=== PATIENT | female | born 1940 | race African-American/Black ===

== ENCOUNTER 2019-04-17 10:24 | Inpatient (IN) | payer MEDICARE, MEDICAID ==
[~2019-04-17] VITALS: Ht 162.6 cm; Wt 104.5 kg
[2019-04-17] MEDS ORDERED: TRAMADOL 50MG TABLET PO ONE (11:00)
[2019-04-17 12:00] LABS: BASOPHILS % 0.5 % (0.0-2.0); EOSINOPHILS % 0.2 % (0.0-5.0); HEMATOCRIT. 32.5 % (36.0-48.0); HEMOGLOBIN. 10.6 g/dL (12.0-16.0); LYMPHOCYTES % 19.1 % (20.0-50.0); MEAN CORPUSCULAR HEMOGLOBIN 32.7 pg (28.0-32.0); MEAN PLATELET VOLUME 7.8 fl (7.4-10.4); MONOCYTES % 8.1 % (2.0-8.0); NEUTROPHILS % 72.1 % (40.0-76.0); PLATELET 184 x1000/uL (130-400); RED BLOOD CELL COUNT 3.25 mill/uL (4.2-5.4); RED CELL DISTRIBUTION WIDTH 14.7 % (11.6-14.6)
[2019-04-17 12:05] LABS: CHLORIDE 110 mEq/L (98-107)
[2019-04-17] MEDS ORDERED: ENOXAPARIN 80MG/0.8ML SYR SUBCUT ONE (13:00)
[2019-04-17] MEDS ORDERED: FUROSEMIDE 40MG/4ML VIAL IVP ONE (13:00)
[2019-04-17] MEDS ORDERED: IPRATROPIUM/ALBUTEROL 0.5-3(2.5)MG/3ML NEB INH PRN (13:30)
[2019-04-17] MEDS ORDERED: ACETAMINOPHEN 325MG TABLET PO PRN (13:30)
[2019-04-17] MEDS ORDERED: MAGNESIUM/ALUMINUM HYDROXIDE/SIMETHICONE 30ML UDC PO PRN (13:30)
[2019-04-17] MEDS ORDERED: CLONIDINE 0.1MG TABLET PO PRN (13:30)
[2019-04-17] MEDS ORDERED: ENOXAPARIN 40MG/0.4ML SYR SUBCUT SCH (13:30)
[2019-04-17] MEDS ORDERED: ONDANSETRON HCL 4MG/2ML INJ IV PRN (13:30)
[2019-04-17] MEDS ORDERED: NA PHOS,M-B/NA PHOS,DI-BA ENEMA 118ML PR PRN (13:30)
[2019-04-17] MEDS ORDERED: DIPHENHYDRAMINE 50MG/ML VIAL IV PRN (13:30)
[2019-04-17] MEDS ORDERED: GUAIFENESIN 200MG/10ML SUGAR FREE UDC PO PRN (13:30)
[2019-04-17] MEDS ORDERED: DOCUSATE SODIUM 100MG CAPSULE PO PRN (13:30)
[2019-04-17 14:25] LABS: CHLORIDE 106 mEq/L (98-107)
[2019-04-17 22:26] VITALS: BP 134/74
[2019-04-17] MEDS ORDERED: POTASSIUM CHLORIDE 20MEQ TABLET SR PO NR (23:00)
[2019-04-17 23:10] VITALS: BP 134/74
[2019-04-17] MEDS: TRAMADOL 50MG TABLET PO PRN (23:35)
[2019-04-18] VITALS: BP 124/70
[2019-04-18] MEDS: ENOXAPARIN 30MG/0.3ML SYR SUBCUT SCH ×2 (01:38→14:56)
[2019-04-18 04:38] VITALS: BP 112/72
[2019-04-18] MEDS: TRAMADOL 50MG TABLET PO PRN (06:49)
[2019-04-18 07:10] LABS: BASOPHILS % 0.4 % (0.0-2.0); HEMATOCRIT. 29.5 % (36.0-48.0); HEMOGLOBIN. 9.8 g/dL (12.0-16.0); LYMPHOCYTES % 32.2 % (20.0-50.0); MEAN CORPUSCULAR HEMOGLOBIN 33.3 pg (28.0-32.0); MEAN PLATELET VOLUME 7.9 fl (7.4-10.4); MONOCYTES % 10.3 % (2.0-8.0); NEUTROPHILS % 56.1 % (40.0-76.0); PLATELET 187 x1000/uL (130-400); RED BLOOD CELL COUNT 2.95 mill/uL (4.2-5.4); RED CELL DISTRIBUTION WIDTH 14.8 % (11.6-14.6)
[2019-04-18 07:41] LABS: CHLORIDE 110 mEq/L (98-107)
[2019-04-18 08:03] LABS: LDL CHOLESTEROL 28 mg/dL (5-100)
[2019-04-18 08:04] LABS: HDL CHOLESTEROL 49 mg/dL (40-59)
[2019-04-18 08:06] LABS: T4 FREE 1.23 ng/dL (0.76-1.46)
[2019-04-18 08:49] VITALS: BP 111/69
[2019-04-18] MEDS: FUROSEMIDE 40MG/4ML VIAL IV SCH (08:52)
[2019-04-18] MEDS: ASPIRIN 81MG EC TABLET PO SCH (08:52)
[2019-04-18 11:41] VITALS: BP 104/61
[2019-04-18 15:44] VITALS: BP 109/69
[2019-04-18] MEDS: NYSTATIN POWDER 15GM TOP SCH ×2 (18:05→18:15)
[2019-04-18 20:00] VITALS: BP 116/58
[2019-04-18 20:22] LABS: CHLORIDE 107 mEq/L (98-107)
[2019-04-18] MEDS: METOPROLOL TARTRATE 5MG/5ML VIAL IV PRN (21:01)
[2019-04-19] MEDS: ENOXAPARIN 30MG/0.3ML SYR SUBCUT SCH ×2 (02:04→14:19)
[2019-04-19] MEDS: METOPROLOL TARTRATE 5MG/5ML VIAL IV PRN ×2 (02:05→08:25)
[2019-04-19] MEDS: TRAMADOL 50MG TABLET PO PRN ×2 (02:18→10:14)
[2019-04-19 02:20] VITALS: BP 146/98
[2019-04-19 04:00] VITALS: BP 122/77
[2019-04-19 07:46] VITALS: BP 130/65
[2019-04-19] MEDS: NYSTATIN POWDER 15GM TOP SCH ×3 (08:17→17:51)
[2019-04-19] MEDS: ASPIRIN 81MG EC TABLET PO SCH (08:17)
[2019-04-19] MEDS: FUROSEMIDE 40MG/4ML VIAL IV SCH (08:25)
[2019-04-19 12:07] VITALS: BP 125/59
[2019-04-19 15:52] VITALS: BP 139/85
[2019-04-19] MEDS: LORAZEPAM 2MG/ML CPJ IV PRN (17:11)
[2019-04-19 20:00] VITALS: BP 134/117
[2019-04-20] VITALS: BP 138/76
[2019-04-20] MEDS: ENOXAPARIN 30MG/0.3ML SYR SUBCUT SCH (01:52)
[2019-04-20 04:00] VITALS: BP 126/104
[2019-04-20 07:07] LABS: BASOPHILS % 0.4 % (0.0-2.0); EOSINOPHILS % 0.7 % (0.0-5.0); HEMOGLOBIN. 10.1 g/dL (12.0-16.0); LYMPHOCYTES % 35.4 % (20.0-50.0); MEAN CORPUSCULAR HEMOGLOBIN 33.2 pg (28.0-32.0); MEAN PLATELET VOLUME 7.9 fl (7.4-10.4); MONOCYTES % 9.1 % (2.0-8.0); NEUTROPHILS % 54.4 % (40.0-76.0); PLATELET 198 x1000/uL (130-400); RED BLOOD CELL COUNT 3.03 mill/uL (4.2-5.4); RED CELL DISTRIBUTION WIDTH 14.8 % (11.6-14.6)
[2019-04-20 07:22] LABS: CHLORIDE 105 mEq/L (98-107)
[2019-04-20] MEDS ORDERED: DIGOXIN 500MCG/2ML AMP IV NR (08:15)
[2019-04-20 08:17] VITALS: BP 138/85
[2019-04-20] MEDS: ASPIRIN 81MG EC TABLET PO SCH (09:10)
[2019-04-20] MEDS: ENOXAPARIN 100MG/ML SYR SUBCUT SCH ×2 (09:11→20:33)
[2019-04-20] MEDS: NYSTATIN POWDER 15GM TOP SCH ×3 (09:12→16:53)
[2019-04-20] MEDS: TRAMADOL 50MG TABLET PO PRN ×2 (09:14→16:42)
[2019-04-20 11:47] LABS: T4 FREE 1.24 ng/dL (0.76-1.46)
[2019-04-20 12:00] VITALS: BP 109/76
[2019-04-20 15:47] LABS: D-DIMER 0.76 mg/L FEU (<0.50); INR 1.1; PROTHROMBIN TIME 11.6 sec (9.6-11.0)
[2019-04-20 15:59] LABS: CLARITY URINE TURBID (CLEAR); COLOR URINE YELLOW (YELLOW); KETONES URINE NEGATIVE (NEGATIVE); LEUKOCYTE ESTERASE URINE 3+ (NEGATIVE); NITRITE URINE POSITIVE (NEGATIVE); OCCULT BLOOD URINE 3+ (NEGATIVE); PROTEIN URINE 1+ (NEGATIVE); SPECIFIC GRAVITY URINE 1.016 (1.005-1.030)
[2019-04-20 16:00] VITALS: BP 158/84
[2019-04-20 16:18] LABS: CREATINE KINASE 102 IU/L (26-192)
[2019-04-20 16:20] LABS: CREATINE KINASE MB FRACTION 2.2 ng/mL (0.5-3.6)
[2019-04-20 19:49] VITALS: BP_SYST 132; BP_SYST 178; BP_DIAS 60; BP_DIAS 68
[2019-04-20] MEDS: LORAZEPAM 2MG/ML CPJ IV PRN (21:11)
[2019-04-21] VITALS (7 sets, daily range): BP systolic 119–145; BP diastolic 58–80
[2019-04-21 00:07] LABS: T4 FREE 1.24 ng/dL (0.76-1.46)
[2019-04-21 00:08] LABS: CREATINE KINASE MB FRACTION 1.7 ng/mL (0.5-3.6)
[2019-04-21] MEDS: METOPROLOL TARTRATE 5MG/5ML VIAL IV PRN (00:24)
[2019-04-21 06:54] LABS: BASOPHILS % 0.5 % (0.0-2.0); EOSINOPHILS % 0.6 % (0.0-5.0); HEMOGLOBIN. 10.1 g/dL (12.0-16.0); LYMPHOCYTES % 33.8 % (20.0-50.0); MEAN CORPUSCULAR HEMOGLOBIN 33.4 pg (28.0-32.0); MEAN CORPUSCULAR VOLUME 98.7 fL (81.0-99.0); MONOCYTES % 11.1 % (2.0-8.0); PLATELET 209 x1000/uL (130-400); RED BLOOD CELL COUNT 3.04 mill/uL (4.2-5.4); RED CELL DISTRIBUTION WIDTH 14.7 % (11.6-14.6)
[2019-04-21 07:08] LABS: CHLORIDE 104 mEq/L (98-107)
[2019-04-21 07:19] LABS: CREATINE KINASE 86 IU/L (26-192)
[2019-04-21 07:24] LABS: CREATINE KINASE MB FRACTION 1.9 ng/mL (0.5-3.6)
[2019-04-21] MEDS: ASPIRIN 81MG EC TABLET PO SCH (09:30)
[2019-04-21] MEDS: NYSTATIN POWDER 15GM TOP SCH ×3 (09:30→16:34)
[2019-04-21] MEDS: ENOXAPARIN 100MG/ML SYR SUBCUT SCH ×2 (09:30→20:12)
[2019-04-21] MEDS: TRAMADOL 50MG TABLET PO PRN ×2 (09:31→20:16)
[2019-04-22] VITALS: BP 140/72
[2019-04-22 04:00] VITALS: BP 170/96
[2019-04-22] MEDS: TRAMADOL 50MG TABLET PO PRN (06:18)
[2019-04-22 08:00] VITALS: BP 125/80
[2019-04-22] MEDS: ASPIRIN 81MG EC TABLET PO SCH (09:31)
[2019-04-22] MEDS: ENOXAPARIN 100MG/ML SYR SUBCUT SCH (09:32)
[2019-04-22] MEDS: SULFAMETHOXAZOLE/TRIMETHOPRIM 800/160MG TABLET PO SCH ×2 (09:37→20:55)
[2019-04-22] MEDS: NYSTATIN POWDER 15GM TOP SCH ×3 (09:38→18:23)
[2019-04-22 12:00] VITALS: BP 125/84
[2019-04-22 16:00] VITALS: BP 125/66
[2019-04-22] MEDS: APIXABAN 5 MG TABLET PO SCH (18:23)
[2019-04-22 20:00] VITALS: BP 124/82
[2019-04-23] VITALS: BP 150/67
[2019-04-23 04:00] VITALS: BP 142/60
[2019-04-23 08:58] VITALS: BP 117/73
[2019-04-23] MEDS: APIXABAN 5 MG TABLET PO SCH (09:17)
[2019-04-23] MEDS: ASPIRIN 81MG EC TABLET PO SCH (09:18)
[2019-04-23] MEDS ORDERED: LEVOFLOXACIN 500MG TABLET PO SCH (11:00)
[2019-04-23 12:15] VITALS: BP 134/92
[2019-04-23 12:18] VITALS: BP 134/66
[2019-04-23] MEDS ORDERED: APIX5TAB MT (12:45)
[2019-04-23] MEDS ORDERED: LEVO500T2 MT (12:47)
[2019-04-23] MEDS ORDERED: TRAM50TA94 MT (12:48)
[2019-04-23 12:49] VITALS: BP 117/73
== END 2019-04-23 16:30 | disposition home health service (06) | DRG 133 ==
LOC: ER 10:24 → 6WST 13:22 → EDBEDREQ 13:26 → ENRESERV 19:34
PROVIDERS: ADMIT Internal Medicine; ATTEND Internal Medicine
DX: J96.00 Acute respiratory failure, unspecified whether with hypoxia or hypercapnia (principal); I50.41 Acute combined systolic (congestive) and diastolic (congestive) heart failure; I42.0 Dilated cardiomyopathy; E87.70 Fluid overload, unspecified; R65.10 Systemic inflammatory response syndrome (SIRS) of non-infectious origin without acute organ dysfunction; I48.91 Unspecified atrial fibrillation; I11.0 Hypertensive heart disease with heart failure; N39.0 Urinary tract infection, site not specified; B96.20 Unspecified Escherichia coli [E. coli] as the cause of diseases classified elsewhere; E11.9 Type 2 diabetes mellitus without complications; B96.89 Other specified bacterial agents as the cause of diseases classified elsewhere; D64.9 Anemia, unspecified; I25.10 Atherosclerotic heart disease of native coronary artery without angina pectoris; M19.90 Unspecified osteoarthritis, unspecified site; I87.8 Other specified disorders of veins; D72.821 Monocytosis (symptomatic); E78.5 Hyperlipidemia, unspecified; I48.92 Unspecified atrial flutter; Z16.12 Extended spectrum beta lactamase (ESBL) resistance; Z96.659 Presence of unspecified artificial knee joint; Z99.3 Dependence on wheelchair; Z88.0 Allergy status to penicillin; Z87.891 Personal history of nicotine dependence; Z82.49 Family history of ischemic heart disease and other diseases of the circulatory system; Z88.5 Allergy status to narcotic agent; Z91.041 Radiographic dye allergy status
CPT/HCPCS: 36415; 71045; 78582; 80048; 80061; 82550; 82553; 83036; 83880; 84134; 84439; 84443; 84484; 85379; 87077; 87186; 93005; 93306; 93970; 96372; 96374; 97110; 97162; 97166; 97530; 99285; A6261; A9558; C1893; J1160; J1200; J1650; J1940; J2060; J3490; A4315

== ENCOUNTER 2019-05-07 13:35 | Inpatient (IN) | payer MEDICARE, MEDICAID ==
[~2019-05-07] VITALS: Ht 170.2 cm; Wt 113.4 kg
[~2019-05-07 13:35] MED LIST: APIX5TAB MT; LEVO500T2 MT; TRAM50TA94 MT
[2019-05-07] MEDS ORDERED: TRAM100C3 PO (13:44)
[2019-05-07] MEDS ORDERED: APIX5TAB PO (13:44)
[2019-05-07] MEDS ORDERED: LEVO250T58 PO (13:44)
[2019-05-07] MEDS ORDERED: ACETAMINOPHEN 325MG TABLET PO STA (14:46)
[2019-05-07 15:27] LABS: BASOPHILS % 0.5 % (0.0-2.0); EOSINOPHILS % 0.1 % (0.0-5.0); HEMATOCRIT. 35.1 % (36.0-48.0); HEMOGLOBIN. 11.6 g/dL (12.0-16.0); LYMPHOCYTES % 15.6 % (20.0-50.0); MEAN CORPUSCULAR HEMOGLOBIN 33.1 pg (28.0-32.0); MEAN CORPUSCULAR VOLUME 100.1 fL (81.0-99.0); MEAN PLATELET VOLUME 8.6 fl (7.4-10.4); MONOCYTES % 9.6 % (2.0-8.0); NEUTROPHILS % 74.2 % (40.0-76.0); PLATELET 210 x1000/uL (130-400); RED BLOOD CELL COUNT 3.51 mill/uL (4.2-5.4); RED CELL DISTRIBUTION WIDTH 15.2 % (11.6-14.6)
[2019-05-07 15:31] LABS: CHLORIDE 106 mEq/L (98-107); INR 1.2; PROTHROMBIN TIME 12.5 sec (9.6-11.0)
[2019-05-07] MEDS ORDERED: DILTIAZEM HCL 30MG TABLET PO ONE (17:15)
[2019-05-07] MEDS ORDERED: ACETAMINOPHEN 500MG TABLET PO ONE (17:15)
[2019-05-07] MEDS ORDERED: DILTIAZEM HCL 5MG/ML 5ML VIAL IV ONE (17:15)
[2019-05-07] MEDS ORDERED: LORAZEPAM 2MG/ML CPJ IV PRN ×2 (19:15)
[2019-05-07] MEDS ORDERED: DOCUSATE SODIUM 100MG CAPSULE PO PRN ×2 (19:15)
[2019-05-07] MEDS ORDERED: ACETAMINOPHEN 325MG TABLET PO PRN ×2 (19:15)
[2019-05-07] MEDS ORDERED: CLONIDINE 0.1MG TABLET PO PRN ×2 (19:15)
[2019-05-07] MEDS ORDERED: IPRATROPIUM/ALBUTEROL 0.5-3(2.5)MG/3ML NEB INH PRN ×2 (19:15)
[2019-05-07] MEDS ORDERED: ENOXAPARIN 40MG/0.4ML SYR SUBCUT SCH (19:15)
[2019-05-07] MEDS ORDERED: DIPHENHYDRAMINE 50MG/ML VIAL IV PRN (19:15)
[2019-05-07] MEDS ORDERED: ONDANSETRON HCL 4MG/2ML INJ IV PRN ×2 (19:15)
[2019-05-07] MEDS ORDERED: MAGNESIUM/ALUMINUM HYDROXIDE/SIMETHICONE 30ML UDC PO PRN ×2 (19:15)
[2019-05-07] MEDS ORDERED: HYDRALAZINE 20MG/ML VIAL IV PRN (19:15)
[2019-05-07] MEDS ORDERED: MORPHINE SULFATE 2 MG/ML CPJ (NOT FOR IM USE) IV PRN (19:15)
[2019-05-07] MEDS ORDERED: NA PHOS,M-B/NA PHOS,DI-BA ENEMA 118ML PR PRN ×2 (19:15)
[2019-05-07] MEDS ORDERED: GUAIFENESIN 200MG/10ML SUGAR FREE UDC PO PRN ×2 (19:15)
[2019-05-07 22:08] LABS: CHLORIDE 105 mEq/L (98-107)
[2019-05-07 22:16] LABS: CREATINE KINASE 74 IU/L (26-192)
[2019-05-07 22:18] LABS: CREATINE KINASE MB FRACTION 1.5 ng/mL (0.5-3.6)
[2019-05-07 22:50] VITALS: BP 142/79
[2019-05-07 23:33] VITALS: BP 142/79
[2019-05-08] MEDS: SODIUM CHLORIDE 0.9% INJ 3ML FLUSH IVF SCH ×3 (00:29→23:51)
[2019-05-08 04:00] VITALS: BP_SYST 117; BP_SYST 151; BP_DIAS 52; BP_DIAS 76
[2019-05-08 06:58] LABS: BASOPHILS % 0.3 % (0.0-2.0); EOSINOPHILS % 0.3 % (0.0-5.0); HEMATOCRIT. 30.6 % (36.0-48.0); HEMOGLOBIN. 10.3 g/dL (12.0-16.0); LYMPHOCYTES % 22.5 % (20.0-50.0); MEAN CORPUSCULAR HEMOGLOBIN 33.2 pg (28.0-32.0); MEAN CORPUSCULAR VOLUME 98.5 fL (81.0-99.0); MONOCYTES % 11.3 % (2.0-8.0); NEUTROPHILS % 65.6 % (40.0-76.0); PLATELET 198 x1000/uL (130-400); RED CELL DISTRIBUTION WIDTH 14.9 % (11.6-14.6)
[2019-05-08 07:09] LABS: CHLORIDE 107 mEq/L (98-107)
[2019-05-08 07:25] LABS: CREATINE KINASE 176 IU/L (26-192); LDL CHOLESTEROL 24 mg/dL (5-100)
[2019-05-08 07:27] LABS: CREATINE KINASE MB FRACTION 2.1 ng/mL (0.5-3.6); HDL CHOLESTEROL 42 mg/dL (40-59); T4 FREE 1.39 ng/dL (0.76-1.46)
[2019-05-08 08:00] VITALS: BP 153/84
[2019-05-08] MEDS: ASPIRIN 81MG EC TABLET PO SCH (08:13)
[2019-05-08] MEDS ORDERED: ENOXAPARIN 30MG/0.3ML SYR SUBCUT SCH (09:00)
[2019-05-08] MEDS ORDERED: APIXABAN 5 MG TABLET PO SCH (09:00)
[2019-05-08 12:00] VITALS: BP 142/83
[2019-05-08] MEDS ORDERED: POTASSIUM CHLORIDE 20MEQ TABLET SR PO SCH (13:15)
[2019-05-08] MEDS: DILTIAZEM HCL 30MG TABLET PO SCH ×2 (14:42→23:50)
[2019-05-08 16:00] VITALS: BP 122/68
[2019-05-08] MEDS: APIXABAN 5 MG TABLET PO SCH (17:03)
[2019-05-08 20:00] VITALS: BP 132/79
[2019-05-08] MEDS: DIPHENHYDRAMINE 50MG/ML VIAL IV PRN (20:43)
[2019-05-08] MEDS: HYDROCODONE/ACETAMINOPHEN 10/325MG TABLET PO PRN (20:45)
[2019-05-08 22:00] VITALS: BP 132/80
[2019-05-09] VITALS (10 sets, daily range): BP systolic 108–155; BP diastolic 62–98
[2019-05-09] MEDS: HYDROCODONE/ACETAMINOPHEN 10/325MG TABLET PO PRN ×2 (02:05→16:54)
[2019-05-09 05:23] LABS: BASOPHILS % 0.3 % (0.0-2.0); EOSINOPHILS % 0.4 % (0.0-5.0); HEMATOCRIT. 32.5 % (36.0-48.0); HEMOGLOBIN. 10.7 g/dL (12.0-16.0); LYMPHOCYTES % 39.4 % (20.0-50.0); MEAN CORPUSCULAR HEMOGLOBIN 32.4 pg (28.0-32.0); MEAN CORPUSCULAR VOLUME 98.9 fL (81.0-99.0); MEAN PLATELET VOLUME 7.9 fl (7.4-10.4); MONOCYTES % 9.8 % (2.0-8.0); NEUTROPHILS % 50.1 % (40.0-76.0); PLATELET 231 x1000/uL (130-400); RED BLOOD CELL COUNT 3.29 mill/uL (4.2-5.4); RED CELL DISTRIBUTION WIDTH 15.1 % (11.6-14.6)
[2019-05-09 05:31] LABS: CHLORIDE 107 mEq/L (98-107)
[2019-05-09] MEDS: DILTIAZEM HCL 30MG TABLET PO SCH ×3 (05:52→22:41)
[2019-05-09] MEDS: SODIUM CHLORIDE 0.9% INJ 3ML FLUSH IVF SCH ×3 (06:13→22:00)
[2019-05-09] MEDS: APIXABAN 5 MG TABLET PO SCH ×2 (09:06→16:54)
[2019-05-09] MEDS: ASPIRIN 81MG EC TABLET PO SCH (09:06)
[2019-05-10] VITALS (7 sets, daily range): BP systolic 2–152; BP diastolic 56–88
[2019-05-10] MEDS: DIPHENHYDRAMINE 50MG/ML VIAL IV PRN (03:02)
[2019-05-10] MEDS: HYDROCODONE/ACETAMINOPHEN 10/325MG TABLET PO PRN ×2 (03:03→09:34)
[2019-05-10] MEDS: SODIUM CHLORIDE 0.9% INJ 3ML FLUSH IVF SCH ×3 (06:46→22:29)
[2019-05-10] MEDS: DILTIAZEM HCL 30MG TABLET PO SCH ×3 (06:46→22:30)
[2019-05-10] MEDS: ASPIRIN 81MG EC TABLET PO SCH (09:23)
[2019-05-10] MEDS: APIXABAN 5 MG TABLET PO SCH ×2 (09:23→17:30)
[2019-05-11] VITALS: BP 129/60
[2019-05-11 02:00] VITALS: BP 135/71
[2019-05-11 04:00] VITALS: BP 132/72
[2019-05-11] MEDS: DILTIAZEM HCL 30MG TABLET PO SCH (05:53)
[2019-05-11] MEDS: SODIUM CHLORIDE 0.9% INJ 3ML FLUSH IVF SCH (05:54)
[2019-05-11] MEDS: ASPIRIN 81MG EC TABLET PO SCH (09:24)
[2019-05-11] MEDS: APIXABAN 5 MG TABLET PO SCH (09:24)
[2019-05-11] MEDS: HYDROCODONE/ACETAMINOPHEN 10/325MG TABLET PO PRN (11:58)
[2019-05-11 12:00] VITALS: BP 141/83
== END 2019-05-11 13:17 | disposition home or self-care (01) | DRG 201 ==
LOC: ER 14:20 → 8WST 17:44 → EDBEDREQTM 18:04 → EDBEDREQ 18:04 → ENRESERV 21:07
PROVIDERS: ADMIT Internal Medicine; ATTEND Internal Medicine
DX: I48.91 Unspecified atrial fibrillation (principal); I11.0 Hypertensive heart disease with heart failure; I50.9 Heart failure, unspecified; E87.6 Hypokalemia; M79.602 Pain in left arm; Z86.718 Personal history of other venous thrombosis and embolism; I25.10 Atherosclerotic heart disease of native coronary artery without angina pectoris; M19.90 Unspecified osteoarthritis, unspecified site; Z79.01 Long term (current) use of anticoagulants; Z91.81 History of falling; Z99.3 Dependence on wheelchair; Z95.828 Presence of other vascular implants and grafts; Z88.0 Allergy status to penicillin; Z88.5 Allergy status to narcotic agent; Z91.041 Radiographic dye allergy status
CPT/HCPCS: 36415; 71045; 73030; 73090; 73110; 80048; 80061; 82550; 82553; 83605; 83735; 83880; 84439; 84443; 84484; 93005; 93970; 96374; 99285; C1893; J0360; J1200; J1650; J2060; J3490

== ENCOUNTER 2019-10-19 12:00 | Emergency (ER) | payer MEDICARE, OTHER ==
[~2019-10-19] VITALS: Ht 172.7 cm; Wt 86.0 kg
[~2019-10-19 12:00] MED LIST changes: +DIGO-26 PO; -LEVO500T2 MT; +LOSA25TA3 PO; +METO-539 PO; +METO1TAB26 PO; +NITR100C11 PO; +OMEP40CA34 PO
[2019-10-19] MEDS ORDERED: ACETAMINOPHEN 500MG TABLET PO ONE (15:00)
[2019-10-19] MEDS ORDERED: CLONIDINE 0.2MG TABLET PO ONE (16:15)
[2019-10-19 16:24] LABS: BASOPHILS % 0.4 % (0.0-2.0); EOSINOPHILS % 0.8 % (0.0-5.0); HEMATOCRIT. 38.5 % (36.0-48.0); HEMOGLOBIN. 12.6 g/dL (12.0-16.0); MEAN CORPUSCULAR HEMOGLOBIN 32.6 pg (28.0-32.0); MEAN CORPUSCULAR VOLUME 99.5 fL (81.0-99.0); MEAN PLATELET VOLUME 8.3 fl (7.4-10.4); MONOCYTES % 9.7 % (2.0-8.0); NEUTROPHILS % 46.1 % (40.0-76.0); PLATELET 202 x1000/uL (130-400); RED BLOOD CELL COUNT 3.87 mill/uL (4.2-5.4)
[2019-10-19 16:32] LABS: CHLORIDE 111 mEq/L (98-107)
[2019-10-19 20:22] VITALS: BP 172/90
== END 2019-10-19 20:24 | disposition home or self-care (01) ==
LOC: ER 13:30
DX: S70.02XA Contusion of left hip, initial encounter (principal); R91.8 Other nonspecific abnormal finding of lung field; R60.0 Localized edema; F03.90 Unspecified dementia, unspecified severity, without behavioral disturbance, psychotic disturbance, mood disturbance, and anxiety; I11.0 Hypertensive heart disease with heart failure; I50.9 Heart failure, unspecified; Z88.5 Allergy status to narcotic agent; Z88.0 Allergy status to penicillin; Z91.041 Radiographic dye allergy status; Z96.649 Presence of unspecified artificial hip joint; W01.0XXA Fall on same level from slipping, tripping and stumbling without subsequent striking against object, initial encounter; Y93.89 Activity, other specified; Y92.018 Other place in single-family (private) house as the place of occurrence of the external cause
CPT/HCPCS: 36415; 71045; 73502; 83880; 84484; 93005; 93971; 99284

== ENCOUNTER 2019-11-06 10:51 | Emergency (ER) | payer MEDICARE, OTHER ==
[~2019-11-06] VITALS: Ht 170.2 cm; Wt 95.0 kg
[2019-11-06 15:53] VITALS: BP 140/89
== END 2019-11-06 15:55 | disposition home or self-care (01) ==
LOC: ER 10:51
DX: S09.8XXA Other specified injuries of head, initial encounter (principal); S09.92XA Unspecified injury of nose, initial encounter; I11.0 Hypertensive heart disease with heart failure; I50.9 Heart failure, unspecified; E11.9 Type 2 diabetes mellitus without complications; Z88.5 Allergy status to narcotic agent; Z88.0 Allergy status to penicillin; Z91.041 Radiographic dye allergy status; Z96.649 Presence of unspecified artificial hip joint; W06.XXXA Fall from bed, initial encounter; Y93.89 Activity, other specified; Y92.013 Bedroom of single-family (private) house as the place of occurrence of the external cause
CPT/HCPCS: 70486; 99284

== ENCOUNTER 2019-11-21 00:16 | Inpatient (IN) | payer MEDICARE, OTHER ==
[~2019-11-21] VITALS: Ht 172.7 cm; Wt 94.3 kg
[2019-11-21] VITALS (51 sets, daily range): BP systolic 65–147; BP diastolic 17–92
[~2019-11-21 00:16] MED LIST changes: +OMEP40CA12 PO; -OMEP40CA34 PO
[2019-11-21] MEDS ORDERED: ACETAMINOPHEN 325MG TABLET PO STA (02:57)
[2019-11-21] MEDS ORDERED: BACITRACIN ZINC OINT UDPKT TOP ONE (03:00)
[2019-11-21] MEDS ORDERED: ADENOSINE 3 MG/ML 2ML VIAL IV ONE ×2 (04:14→04:22)
[2019-11-21] MEDS ORDERED: DILTIAZEM HCL 5MG/ML 5ML VIAL IV ONE ×2 (04:25→04:39)
[2019-11-21] MEDS ORDERED: MAGNESIUM 1 G PREMIX 200 ML IV ONE ×2 (04:30→06:22)
[2019-11-21 04:51] LABS: BASOPHILS % 0.1 % (0.0-2.0); HEMATOCRIT. 30.8 % (36.0-48.0); HEMOGLOBIN. 9.9 g/dL (12.0-16.0); INR 1.3; LYMPHOCYTES % 10.9 % (20.0-50.0); MEAN CORPUSCULAR HEMOGLOBIN 31.1 pg (28.0-32.0); MEAN CORPUSCULAR VOLUME 96.9 fL (81.0-99.0); MEAN PLATELET VOLUME 8.7 fl (7.4-10.4); PLATELET 212 x1000/uL (130-400); PROTHROMBIN TIME 12.7 sec (9.6-11.0); RED BLOOD CELL COUNT 3.18 mill/uL (4.2-5.4); RED CELL DISTRIBUTION WIDTH 17.1 % (11.6-14.6)
[2019-11-21 04:56] LABS: CHLORIDE 109 mEq/L (98-107)
[2019-11-21] MEDS ORDERED: DILTIAZEM HCL 125 MG in DEXT 5% WATER 100 ML IV NR (05:15)
[2019-11-21] MEDS ORDERED: DILTIAZEM HCL 125 MG in DEXT 5% WATER 100 ML IV ONE (05:15)
[2019-11-21] MEDS ORDERED: ASPIRIN 81MG TABLET PO ONE (06:15)
[2019-11-21 07:32] LABS: CLARITY URINE TURBID (CLEAR); COLOR URINE YELLOW (YELLOW); KETONES URINE NEGATIVE (NEGATIVE); PH URINE 6.5 (4.5-8.0); PROTEIN URINE 2+ (NEGATIVE); SPECIFIC GRAVITY URINE 1.016 (1.005-1.030)
[2019-11-21 07:33] LABS: LEUKOCYTE ESTERASE URINE 3+ (NEGATIVE); NITRITE URINE NEGATIVE (NEGATIVE); OCCULT BLOOD URINE 2+ (NEGATIVE)
[2019-11-21] MEDS ORDERED: MAGNESIUM 2 G PREMIX 50 ML IV ONE (08:45)
[2019-11-21] MEDS ORDERED: LEVOFLOXACIN 750MG PREMIX 150 ML IV ONE (08:45)
[2019-11-21] MEDS ORDERED: ONDANSETRON HCL 4MG/2ML INJ IV PRN (08:45)
[2019-11-21] MEDS ORDERED: VANCOMYCIN 1 G PREMIX 200 ML IV SCH (09:00)
[2019-11-21] MEDS ORDERED: POTASSIUM CHLORIDE INJ 40 MEQ in DEXT 5% WATER 250 ML IV NR (10:00)
[2019-11-21] MEDS ORDERED: PHENYLEPHRINE 10 MG in DEXT 5% WATER 249 ML IV PRN (10:00)
[2019-11-21] MEDS: DOCUSATE SODIUM 250MG CAPSULE PO SCH (10:20)
[2019-11-21] MEDS: HYDROCODONE/ACETAMINOPHEN 5/325MG TABLET PO PRN (10:21)
[2019-11-21] MEDS ORDERED: VANCOMYCIN 1500MG in DEXTROSE 5% WATER 250ML IV SCH (10:30)
[2019-11-21] MEDS: PANTOPRAZOLE SODIUM 40 MG/VIAL IV SCH (10:43)
[2019-11-21] MEDS: CARVEDILOL 3.125 MG TABLET PO SCH ×2 (10:44→21:08)
[2019-11-21] MEDS: CEFEPIME 1,000 MG in DEXTROSE 5% WATER 50 ML IV SCH ×2 (12:20→21:07)
[2019-11-21] MEDS ORDERED: POTASSIUM CHLORIDE 20MEQ TABLET SR PO NR (14:45)
[2019-11-21] MEDS: DILTIAZEM HCL 125 MG in DEXT 5% WATER 100 ML IV PRN (15:40)
[2019-11-22] VITALS (92 sets, daily range): BP systolic 80–134; BP diastolic 22–84
[2019-11-22] MEDS: HYDROCODONE/ACETAMINOPHEN 5/325MG TABLET PO PRN ×2 (00:47→11:16)
[2019-11-22] MEDS: MORPHINE SULFATE 2 MG/ML CPJ (NOT FOR IM USE) IV PRN (02:47)
[2019-11-22] MEDS: DILTIAZEM HCL 125 MG in DEXT 5% WATER 100 ML IV PRN ×2 (03:12→17:00)
[2019-11-22] MEDS ORDERED: VANCOMYCIN 750 MG PREMIX 150 ML IV SCH (05:00)
[2019-11-22 06:27] LABS: HEMATOCRIT. 25.5 % (36.0-48.0); HEMOGLOBIN. 8.3 g/dL (12.0-16.0); MEAN CORPUSCULAR HEMOGLOBIN 31.6 pg (28.0-32.0); MEAN CORPUSCULAR VOLUME 96.8 fL (81.0-99.0); MEAN PLATELET VOLUME 8.8 fl (7.4-10.4); PLATELET 178 x1000/uL (130-400); RED BLOOD CELL COUNT 2.63 mill/uL (4.2-5.4)
[2019-11-22 06:45] LABS: CHLORIDE 110 mEq/L (98-107)
[2019-11-22] MEDS: PANTOPRAZOLE SODIUM 40 MG/VIAL IV SCH (08:08)
[2019-11-22] MEDS: CARVEDILOL 3.125 MG TABLET PO SCH ×2 (08:08→20:39)
[2019-11-22 08:21] LABS: PLATELET ESTIMATE NORMAL
[2019-11-22] MEDS: VANCOMYCIN 1500MG in DEXTROSE 5% WATER 250ML IV SCH (08:57)
[2019-11-22] MEDS ORDERED: MAGNESIUM 2 G PREMIX 50 ML IV NR (09:00)
[2019-11-22] MEDS: CEFEPIME 1,000 MG in DEXTROSE 5% WATER 50 ML IV SCH ×2 (09:50→21:02)
[2019-11-22] MEDS: DOCUSATE SODIUM 250MG CAPSULE PO SCH (09:56)
[2019-11-22 13:18] LABS: TOTAL IRON BINDING CAPACITY 299 ug/dL (250-450)
[2019-11-22] MEDS ORDERED: NAPR-681 MT (15:18)
[2019-11-22] MEDS ORDERED: FURO20TA4 MT (15:19)
[2019-11-22] MEDS ORDERED: POTA-9 MT (15:20)
[2019-11-23] VITALS (86 sets, daily range): BP systolic 87–152; BP diastolic 31–114
[2019-11-23 06:09] LABS: HEMATOCRIT. 23.9 % (36.0-48.0); HEMOGLOBIN. 7.9 g/dL (12.0-16.0); MEAN CORPUSCULAR HEMOGLOBIN 31.6 pg (28.0-32.0); MEAN CORPUSCULAR VOLUME 95.9 fL (81.0-99.0); MEAN PLATELET VOLUME 8.9 fl (7.4-10.4); PLATELET 187 x1000/uL (130-400); RED BLOOD CELL COUNT 2.49 mill/uL (4.2-5.4); RED CELL DISTRIBUTION WIDTH 16.9 % (11.6-14.6)
[2019-11-23 06:24] LABS: CHLORIDE 108 mEq/L (98-107)
[2019-11-23] MEDS: DILTIAZEM HCL 125 MG in DEXT 5% WATER 100 ML IV PRN (06:35)
[2019-11-23] MEDS: DOCUSATE SODIUM 250MG CAPSULE PO SCH (08:48)
[2019-11-23] MEDS: PANTOPRAZOLE SODIUM 40 MG/VIAL IV SCH ×2 (08:48→21:00)
[2019-11-23] MEDS: VANCOMYCIN 1500MG in DEXTROSE 5% WATER 250ML IV SCH (08:48)
[2019-11-23] MEDS: CEFEPIME 1,000 MG in DEXTROSE 5% WATER 50 ML IV SCH ×2 (11:12→22:00)
[2019-11-23] MEDS: CARVEDILOL 3.125 MG TABLET PO SCH ×2 (11:13→23:13)
[2019-11-23 12:47] LABS: PLATELET ESTIMATE NORMAL
[2019-11-23] MEDS: MORPHINE SULFATE 2 MG/ML CPJ (NOT FOR IM USE) IV PRN ×2 (15:45→21:00)
[2019-11-24] VITALS (64 sets, daily range): BP systolic 89–198; BP diastolic 33–109
[2019-11-24] MEDS: DILTIAZEM HCL 60MG TABLET PO SCH ×4 (00:55→19:42)
[2019-11-24 06:51] LABS: HEMATOCRIT. 26.9 % (36.0-48.0); HEMOGLOBIN. 8.6 g/dL (12.0-16.0); MEAN CORPUSCULAR HEMOGLOBIN 30.6 pg (28.0-32.0); MEAN CORPUSCULAR VOLUME 95.6 fL (81.0-99.0); MEAN PLATELET VOLUME 8.6 fl (7.4-10.4); PLATELET 201 x1000/uL (130-400); RED BLOOD CELL COUNT 2.81 mill/uL (4.2-5.4); RED CELL DISTRIBUTION WIDTH 16.7 % (11.6-14.6)
[2019-11-24 06:59] LABS: CHLORIDE 109 mEq/L (98-107)
[2019-11-24 07:17] LABS: INR 1.1; PARTIAL THROMBOPLASTIN TIME 38.5 sec (23.4-31.0); PROTHROMBIN TIME 11.2 sec (9.6-11.0)
[2019-11-24] MEDS: DOCUSATE SODIUM 250MG CAPSULE PO SCH (09:00)
[2019-11-24] MEDS: CARVEDILOL 3.125 MG TABLET PO SCH ×2 (09:00→21:27)
[2019-11-24] MEDS ORDERED: LIDOCAINE HCL 1% 20ML VIAL (Pyxis) INJ ONE (09:13)
[2019-11-24 09:41] LABS: PLATELET ESTIMATE NORMAL
[2019-11-24] MEDS: VANCOMYCIN 1500MG in DEXTROSE 5% WATER 250ML IV SCH (10:26)
[2019-11-24] MEDS: PANTOPRAZOLE SODIUM 40 MG/VIAL IV SCH ×2 (10:26→21:27)
[2019-11-24] MEDS ORDERED: CEFAZOLIN 1000MG PREMIX 50 ML IV SCH (11:00)
[2019-11-24] MEDS: RISPERIDONE 0.5MG TABLET PO SCH (12:18)
[2019-11-24] MEDS: IRON SUCROSE COMPLEX 100 MG/5 ML ML IV SCH (13:59)
[2019-11-24] MEDS: LEVOFLOXACIN 500MG PREMIX 100 ML IV SCH (13:59)
[2019-11-24] MEDS: LORAZEPAM 2MG/ML CPJ IV PRN (16:42)
[2019-11-25] VITALS (86 sets, daily range): BP systolic 85–154; BP diastolic 32–94
[2019-11-25] MEDS ORDERED: VANCOMYCIN 1250MG in DEXTROSE 5% WATER 250ML IV SCH (04:00)
[2019-11-25 05:39] LABS: BASOPHILS % 0.1 % (0.0-2.0); EOSINOPHILS % 0.9 % (0.0-5.0); HEMATOCRIT. 25.8 % (36.0-48.0); HEMOGLOBIN. 8.3 g/dL (12.0-16.0); LYMPHOCYTES % 18.7 % (20.0-50.0); MEAN CORPUSCULAR HEMOGLOBIN 30.8 pg (28.0-32.0); MEAN CORPUSCULAR VOLUME 96.2 fL (81.0-99.0); MEAN PLATELET VOLUME 8.5 fl (7.4-10.4); MONOCYTES % 14.6 % (2.0-8.0); NEUTROPHILS % 65.7 % (40.0-76.0); PLATELET 217 x1000/uL (130-400); RED BLOOD CELL COUNT 2.68 mill/uL (4.2-5.4); RED CELL DISTRIBUTION WIDTH 16.6 % (11.6-14.6)
[2019-11-25 05:43] LABS: CHLORIDE 108 mEq/L (98-107)
[2019-11-25] MEDS: DILTIAZEM HCL 60MG TABLET PO SCH ×4 (06:00→19:07)
[2019-11-25] MEDS: DILTIAZEM HCL 125 MG in DEXT 5% WATER 100 ML IV PRN (07:00)
[2019-11-25] MEDS: DOCUSATE SODIUM 250MG CAPSULE PO SCH (08:40)
[2019-11-25] MEDS: RISPERIDONE 0.5MG TABLET PO SCH (08:40)
[2019-11-25] MEDS: PANTOPRAZOLE SODIUM 40 MG/VIAL IV SCH ×2 (08:40→21:56)
[2019-11-25] MEDS: IRON SUCROSE COMPLEX 100 MG/5 ML ML IV SCH (08:40)
[2019-11-25] MEDS: CARVEDILOL 3.125 MG TABLET PO SCH (08:42)
[2019-11-25] MEDS: LORAZEPAM 2MG/ML CPJ IV PRN (09:48)
[2019-11-25] MEDS: MORPHINE SULFATE 2 MG/ML CPJ (NOT FOR IM USE) IV PRN (10:16)
[2019-11-25] MEDS: LEVOFLOXACIN 500MG PREMIX 100 ML IV SCH (13:01)
[2019-11-25] MEDS ORDERED: MIDAZOLAM HCL 5 MG/5 ML VIAL ONE (17:22)
[2019-11-25] MEDS ORDERED: FENTANYL CITRATE/PF 50MCG/ML 2ML VIAL ONE (17:22)
[2019-11-25] MEDS ORDERED: MIDAZOLAM HCL 5 MG/5 ML VIAL IV PRN (17:35)
[2019-11-25] MEDS: CARVEDILOL 6.25 MG TABLET PO SCH (21:57)
[2019-11-26] VITALS (63 sets, daily range): BP systolic 94–158; BP diastolic 20–100
[2019-11-26] MEDS: DILTIAZEM HCL 60MG TABLET PO SCH ×4 (00:31→18:49)
[2019-11-26] MEDS: MORPHINE SULFATE 2 MG/ML CPJ (NOT FOR IM USE) IV PRN (01:17)
[2019-11-26 06:04] LABS: BASOPHILS % 0.3 % (0.0-2.0); EOSINOPHILS % 0.9 % (0.0-5.0); HEMOGLOBIN. 7.8 g/dL (12.0-16.0); LYMPHOCYTES % 23.3 % (20.0-50.0); MEAN CORPUSCULAR HEMOGLOBIN 31.2 pg (28.0-32.0); MEAN PLATELET VOLUME 8.5 fl (7.4-10.4); MONOCYTES % 10.6 % (2.0-8.0); NEUTROPHILS % 64.9 % (40.0-76.0); PLATELET 174 x1000/uL (130-400); RED CELL DISTRIBUTION WIDTH 16.7 % (11.6-14.6)
[2019-11-26 06:11] LABS: CHLORIDE 110 mEq/L (98-107)
[2019-11-26] MEDS: PANTOPRAZOLE SODIUM 40 MG/VIAL IV SCH ×2 (08:02→20:49)
[2019-11-26] MEDS: IRON SUCROSE COMPLEX 100 MG/5 ML ML IV SCH (08:02)
[2019-11-26] MEDS: DOCUSATE SODIUM SUGAR FREE 100MG/10ML UDC NG SCH ×2 (08:03→08:46)
[2019-11-26] MEDS: RISPERIDONE 0.5MG TABLET PO SCH (08:03)
[2019-11-26] MEDS: CARVEDILOL 6.25 MG TABLET PO SCH ×2 (08:05→20:49)
[2019-11-26] MEDS: LEVOFLOXACIN 500MG PREMIX 100 ML IV SCH (10:44)
[2019-11-26] MEDS: ENOXAPARIN 30MG/0.3ML SYR SUBCUT SCH (18:49)
[2019-11-27] VITALS (12 sets, daily range): BP systolic 101–136; BP diastolic 40–88
[2019-11-27] MEDS: ENOXAPARIN 30MG/0.3ML SYR SUBCUT SCH ×2 (06:00→17:40)
[2019-11-27] MEDS: DILTIAZEM HCL 60MG TABLET PO SCH ×4 (06:00→23:01)
[2019-11-27 06:32] LABS: CHLORIDE 110 mEq/L (98-107)
[2019-11-27 06:36] LABS: BASOPHILS % 0.2 % (0.0-2.0); EOSINOPHILS % 0.5 % (0.0-5.0); HEMATOCRIT. 24.6 % (36.0-48.0); HEMOGLOBIN. 7.9 g/dL (12.0-16.0); LYMPHOCYTES % 20.1 % (20.0-50.0); MEAN CORPUSCULAR VOLUME 96.4 fL (81.0-99.0); MEAN PLATELET VOLUME 8.6 fl (7.4-10.4); MONOCYTES % 10.3 % (2.0-8.0); NEUTROPHILS % 68.9 % (40.0-76.0); PLATELET 231 x1000/uL (130-400); RED BLOOD CELL COUNT 2.55 mill/uL (4.2-5.4)
[2019-11-27] MEDS: DOCUSATE SODIUM SUGAR FREE 100MG/10ML UDC NG SCH (08:37)
[2019-11-27] MEDS: RISPERIDONE 0.5MG TABLET PO SCH (08:37)
[2019-11-27] MEDS: PANTOPRAZOLE SODIUM 40 MG/VIAL IV SCH ×2 (08:39→21:32)
[2019-11-27] MEDS: CARVEDILOL 6.25 MG TABLET PO SCH ×2 (08:39→21:32)
[2019-11-27] MEDS: LEVOFLOXACIN 500MG PREMIX 100 ML IV SCH (11:09)
[2019-11-28] VITALS (12 sets, daily range): BP systolic 89–131; BP diastolic 47–80
[2019-11-28] MEDS: DILTIAZEM HCL 60MG TABLET PO SCH ×4 (06:45→23:19)
[2019-11-28] MEDS: CARVEDILOL 6.25 MG TABLET PO SCH ×3 (06:46→21:31)
[2019-11-28] MEDS: ENOXAPARIN 30MG/0.3ML SYR SUBCUT SCH ×2 (06:46→18:05)
[2019-11-28 07:39] LABS: BASOPHILS % 0.3 % (0.0-2.0); EOSINOPHILS % 0.1 % (0.0-5.0); HEMATOCRIT. 24.3 % (36.0-48.0); HEMOGLOBIN. 7.8 g/dL (12.0-16.0); LYMPHOCYTES % 21.5 % (20.0-50.0); MEAN CORPUSCULAR HEMOGLOBIN 30.8 pg (28.0-32.0); MEAN CORPUSCULAR VOLUME 95.7 fL (81.0-99.0); MEAN PLATELET VOLUME 8.3 fl (7.4-10.4); MONOCYTES % 9.5 % (2.0-8.0); NEUTROPHILS % 68.6 % (40.0-76.0); PLATELET 234 x1000/uL (130-400); RED BLOOD CELL COUNT 2.54 mill/uL (4.2-5.4)
[2019-11-28] MEDS: DOCUSATE SODIUM SUGAR FREE 100MG/10ML UDC NG SCH (08:45)
[2019-11-28] MEDS: PANTOPRAZOLE SODIUM 40 MG/VIAL IV SCH ×2 (08:46→21:30)
[2019-11-28] MEDS: RISPERIDONE 0.5MG TABLET PO SCH (08:46)
[2019-11-28 09:27] LABS: CHLORIDE 111 mEq/L (98-107)
[2019-11-28] MEDS ORDERED: MAGNESIUM 2 G PREMIX 50 ML IV NR (10:00)
[2019-11-28] MEDS: LEVOFLOXACIN 500MG TABLET PO SCH (11:44)
[2019-11-29] VITALS (12 sets, daily range): BP systolic 103–125; BP diastolic 39–86
[2019-11-29] MEDS: DILTIAZEM HCL 60MG TABLET PO SCH ×3 (04:54→18:42)
[2019-11-29] MEDS: CARVEDILOL 6.25 MG TABLET PO SCH ×3 (04:55→21:16)
[2019-11-29] MEDS: ENOXAPARIN 30MG/0.3ML SYR SUBCUT SCH ×2 (04:55→18:00)
[2019-11-29 07:25] LABS: BASOPHILS % 0.3 % (0.0-2.0); EOSINOPHILS % 0.3 % (0.0-5.0); HEMATOCRIT. 22.6 % (36.0-48.0); HEMOGLOBIN. 7.3 g/dL (12.0-16.0); MEAN CORPUSCULAR HEMOGLOBIN 31.3 pg (28.0-32.0); MEAN CORPUSCULAR VOLUME 96.6 fL (81.0-99.0); MONOCYTES % 10.8 % (2.0-8.0); NEUTROPHILS % 68.6 % (40.0-76.0); PLATELET 223 x1000/uL (130-400); RED BLOOD CELL COUNT 2.33 mill/uL (4.2-5.4); RED CELL DISTRIBUTION WIDTH 16.7 % (11.6-14.6)
[2019-11-29 07:41] LABS: CHLORIDE 110 mEq/L (98-107)
[2019-11-29] MEDS: PANTOPRAZOLE SODIUM 40 MG/VIAL IV SCH ×2 (08:50→21:16)
[2019-11-29] MEDS: DOCUSATE SODIUM SUGAR FREE 100MG/10ML UDC NG SCH (08:50)
[2019-11-29] MEDS: RISPERIDONE 0.5MG TABLET PO SCH (08:50)
[2019-11-29] MEDS: ZINC SULFATE 220 MG ( 50 ) CAPSULE PO SCH (08:50)
[2019-11-29] MEDS: ASCORBIC ACID 500 MG TABLET PO SCH (08:51)
[2019-11-29] MEDS: LEVOFLOXACIN 500MG TABLET PO SCH (11:20)
[2019-11-30] VITALS (12 sets, daily range): BP systolic 104–140; BP diastolic 60–76
[2019-11-30] MEDS: DILTIAZEM HCL 60MG TABLET PO SCH ×3 (00:16→11:37)
[2019-11-30] MEDS: CARVEDILOL 6.25 MG TABLET PO SCH ×3 (05:22→21:08)
[2019-11-30] MEDS: ENOXAPARIN 30MG/0.3ML SYR SUBCUT SCH ×2 (06:41→17:23)
[2019-11-30] MEDS: DOCUSATE SODIUM SUGAR FREE 100MG/10ML UDC NG SCH (09:39)
[2019-11-30] MEDS: RISPERIDONE 0.5MG TABLET PO SCH (09:39)
[2019-11-30] MEDS: ZINC SULFATE 220 MG ( 50 ) CAPSULE PO SCH (09:39)
[2019-11-30] MEDS: ASCORBIC ACID 500 MG TABLET PO SCH (09:39)
[2019-11-30] MEDS: PANTOPRAZOLE SODIUM 40 MG/VIAL IV SCH ×2 (09:39→21:08)
[2019-11-30] MEDS: LEVOFLOXACIN 500MG TABLET PO SCH (11:37)
[2019-11-30] MEDS: DILTIAZEM HCL 30MG TABLET PO SCH ×2 (14:08→21:08)
[2019-11-30] MEDS ORDERED: DIGOXIN 500MCG/2ML AMP IV ONE (18:00)
[2019-11-30 20:53] LABS: BASOPHILS % 0.1 % (0.0-2.0); EOSINOPHILS % 0.1 % (0.0-5.0); HEMOGLOBIN. 7.7 g/dL (12.0-16.0); MEAN CORPUSCULAR HEMOGLOBIN 31.4 pg (28.0-32.0); MEAN CORPUSCULAR VOLUME 97.6 fL (81.0-99.0); MEAN PLATELET VOLUME 7.9 fl (7.4-10.4); MONOCYTES % 8.6 % (2.0-8.0); NEUTROPHILS % 73.2 % (40.0-76.0); PLATELET 226 x1000/uL (130-400); RED BLOOD CELL COUNT 2.46 mill/uL (4.2-5.4); RED CELL DISTRIBUTION WIDTH 17.1 % (11.6-14.6)
[2019-12-01] VITALS (12 sets, daily range): BP systolic 104–152; BP diastolic 53–79
[2019-12-01] MEDS: CARVEDILOL 6.25 MG TABLET PO SCH (05:23)
[2019-12-01] MEDS: DILTIAZEM HCL 30MG TABLET PO SCH ×3 (05:24→21:47)
[2019-12-01] MEDS: ASCORBIC ACID 500 MG TABLET PO SCH (09:35)
[2019-12-01] MEDS: RISPERIDONE 0.5MG TABLET PO SCH (09:35)
[2019-12-01] MEDS: ZINC SULFATE 220 MG ( 50 ) CAPSULE PO SCH (09:35)
[2019-12-01] MEDS: PANTOPRAZOLE SODIUM 40 MG/VIAL IV SCH ×2 (09:35→21:46)
[2019-12-01] MEDS: DOCUSATE SODIUM 250MG CAPSULE PO SCH (10:23)
[2019-12-01] MEDS: LEVOFLOXACIN 500MG TABLET PO SCH (10:25)
[2019-12-01 16:42] LABS: CHLORIDE 112 mEq/L (98-107)
[2019-12-01 16:43] LABS: BASOPHILS % 0.2 % (0.0-2.0); EOSINOPHILS % 0.2 % (0.0-5.0); HEMATOCRIT. 24.8 % (36.0-48.0); LYMPHOCYTES % 20.1 % (20.0-50.0); MEAN CORPUSCULAR HEMOGLOBIN 31.4 pg (28.0-32.0); MEAN CORPUSCULAR VOLUME 97.8 fL (81.0-99.0); MEAN PLATELET VOLUME 7.8 fl (7.4-10.4); MONOCYTES % 9.6 % (2.0-8.0); NEUTROPHILS % 69.9 % (40.0-76.0); PLATELET 220 x1000/uL (130-400); RED BLOOD CELL COUNT 2.54 mill/uL (4.2-5.4); RED CELL DISTRIBUTION WIDTH 17.3 % (11.6-14.6)
[2019-12-01] MEDS: CARVEDILOL 12.5MG TABLET PO SCH (17:08)
[2019-12-02] VITALS (10 sets, daily range): BP systolic 100–157; BP diastolic 40–86
[2019-12-02] MEDS: DILTIAZEM HCL 30MG TABLET PO SCH (02:19)
[2019-12-02 06:58] LABS: CHLORIDE 111 mEq/L (98-107)
[2019-12-02 07:07] LABS: BASOPHILS % 0.3 % (0.0-2.0); EOSINOPHILS % 0.3 % (0.0-5.0); HEMOGLOBIN. 7.7 g/dL (12.0-16.0); LYMPHOCYTES % 23.2 % (20.0-50.0); MEAN CORPUSCULAR HEMOGLOBIN 31.4 pg (28.0-32.0); MEAN CORPUSCULAR VOLUME 98.5 fL (81.0-99.0); MEAN PLATELET VOLUME 7.8 fl (7.4-10.4); MONOCYTES % 7.9 % (2.0-8.0); NEUTROPHILS % 68.3 % (40.0-76.0); PLATELET 232 x1000/uL (130-400); RED BLOOD CELL COUNT 2.44 mill/uL (4.2-5.4); RED CELL DISTRIBUTION WIDTH 17.5 % (11.6-14.6)
[2019-12-02] MEDS: DOCUSATE SODIUM 250MG CAPSULE PO SCH (08:37)
[2019-12-02] MEDS: PANTOPRAZOLE SODIUM 40 MG/VIAL IV SCH ×2 (08:38→21:15)
[2019-12-02] MEDS: CARVEDILOL 12.5MG TABLET PO SCH ×2 (08:38→17:00)
[2019-12-02] MEDS: ASCORBIC ACID 500 MG TABLET PO SCH (08:38)
[2019-12-02] MEDS: ZINC SULFATE 220 MG ( 50 ) CAPSULE PO SCH (08:38)
[2019-12-02] MEDS: RISPERIDONE 0.5MG TABLET PO SCH (08:38)
[2019-12-02] MEDS: DILTIAZEM HCL 60MG TABLET PO SCH ×3 (08:40→17:10)
[2019-12-02] MEDS: IRON SUCROSE COMPLEX 100 MG/5 ML ML IV SCH (14:10)
[2019-12-02] MEDS: ACETAMINOPHEN 325MG TABLET PO PRN (16:41)
[2019-12-03] VITALS (9 sets, daily range): BP systolic 106–146; BP diastolic 20–89
[2019-12-03] MEDS: DILTIAZEM HCL 60MG TABLET PO SCH ×4 (00:24→17:28)
[2019-12-03] MEDS: ZINC SULFATE 220 MG ( 50 ) CAPSULE PO SCH (09:23)
[2019-12-03] MEDS: ASCORBIC ACID 500 MG TABLET PO SCH (09:23)
[2019-12-03] MEDS: PANTOPRAZOLE SODIUM 40 MG/VIAL IV SCH ×2 (09:23→21:25)
[2019-12-03] MEDS: DOCUSATE SODIUM 250MG CAPSULE PO SCH (09:23)
[2019-12-03] MEDS: IRON SUCROSE COMPLEX 100 MG/5 ML ML IV SCH (09:23)
[2019-12-03] MEDS: RISPERIDONE 0.5MG TABLET PO SCH ×2 (09:24→17:27)
[2019-12-03] MEDS: CARVEDILOL 12.5MG TABLET PO SCH ×2 (09:24→17:00)
[2019-12-03] MEDS ORDERED: LORAZEPAM 2MG/ML CPJ IV PRN (14:45)
[2019-12-04] VITALS: BP 136/74
[2019-12-04] MEDS: DILTIAZEM HCL 60MG TABLET PO SCH ×2 (00:13→06:32)
[2019-12-04 04:00] VITALS: BP 145/56
[2019-12-04 08:00] VITALS: BP 120/67
[2019-12-04] MEDS: ZINC SULFATE 220 MG ( 50 ) CAPSULE PO SCH (09:33)
[2019-12-04] MEDS: RISPERIDONE 0.5MG TABLET PO SCH (09:33)
[2019-12-04] MEDS: DOCUSATE SODIUM 250MG CAPSULE PO SCH (09:33)
[2019-12-04] MEDS: ASCORBIC ACID 500 MG TABLET PO SCH (09:33)
[2019-12-04] MEDS: PANTOPRAZOLE SODIUM 40 MG/VIAL IV SCH ×2 (09:33→21:12)
[2019-12-04] MEDS: CARVEDILOL 12.5MG TABLET PO SCH (09:34)
[2019-12-04] MEDS: IRON SUCROSE COMPLEX 100 MG/5 ML ML IV SCH (09:34)
[2019-12-04 12:00] VITALS: BP 109/47
[2019-12-04 12:56] LABS: BG BASE EXCESS 1.2 mmol/L (-2.0-2.0); BG CARBOXYHEMOGLOBIN 0.3 % (0.5-1.5); BG DEOXYHEMOGLOBIN 4.2 % (0.0-5.0); BG FRACTION INSPIRED OXYGEN 32; BG HCO3 ACT 28.7 mmol/L (22.0-26.0); BG METHEMOGLOBIN 0.1 % (0.0-1.5); BG OXYGEN SATURATION 95.8 % (92.0-98.5); BG OXYHEMOGLOBIN 95.4 % (94.0-97.0); BG PCO2 64.2 mmHg (35.0-45.0); BG PH 7.268 (7.350-7.450); BG PO2 93.1 mmHg (75.0-100.0); BG SAMPLE SITE RIGHT BRACHIAL; BG TOTAL HEMOGLOBIN 7.8 g/dL (12.0-18.0); BG VENT MODE NASAL CANNULA
[2019-12-04] MEDS ORDERED: LIDOCAINE HCL 1% 20ML VIAL (Pyxis) INJ ONE (14:52)
[2019-12-04 16:00] VITALS: BP 112/42
[2019-12-04 16:11] LABS: BASOPHILS % 0.2 % (0.0-2.0); EOSINOPHILS % 0.3 % (0.0-5.0); HEMATOCRIT. 22.8 % (36.0-48.0); HEMOGLOBIN. 7.4 g/dL (12.0-16.0); LYMPHOCYTES % 27.4 % (20.0-50.0); MEAN CORPUSCULAR HEMOGLOBIN 32.3 pg (28.0-32.0); MEAN CORPUSCULAR VOLUME 100.4 fL (81.0-99.0); MEAN PLATELET VOLUME 7.3 fl (7.4-10.4); MONOCYTES % 7.7 % (2.0-8.0); NEUTROPHILS % 64.4 % (40.0-76.0); PLATELET 214 x1000/uL (130-400); RED BLOOD CELL COUNT 2.27 mill/uL (4.2-5.4); RED CELL DISTRIBUTION WIDTH 18.1 % (11.6-14.6)
[2019-12-04 16:22] LABS: CHLORIDE 114 mEq/L (98-107)
[2019-12-04] MEDS ORDERED: FUROSEMIDE 40MG/4ML VIAL IVP NR (17:13)
[2019-12-04] MEDS ORDERED: IPRATROPIUM/ALBUTEROL 0.5-3(2.5)MG/3ML NEB HHN PRN (17:45)
[2019-12-04] MEDS: DILTIAZEM HCL 30MG TABLET PO SCH (18:00)
[2019-12-04 19:55] LABS: BG BASE EXCESS 3.4 mmol/L (-2.0-2.0); BG BILEVEL POS AIRWAY PRESSURE 18/5; BG CARBOXYHEMOGLOBIN 0.4 % (0.5-1.5); BG DEOXYHEMOGLOBIN 1.5 % (0.0-5.0); BG FRACTION INSPIRED OXYGEN 40; BG HCO3 ACT 29.4 mmol/L (22.0-26.0); BG METHEMOGLOBIN 1.1 % (0.0-1.5); BG OXYGEN SATURATION 98.5 % (92.0-98.5); BG PCO2 52.5 mmHg (35.0-45.0); BG PH 7.366 (7.350-7.450); BG PO2 135.8 mmHg (75.0-100.0); BG SAMPLE SITE RIGHT RADIAL; BG TOTAL HEMOGLOBIN 8.8 g/dL (12.0-18.0); BG VENT MODE MASK - BIPAP; BG VENT RATE 18 set
[2019-12-04 20:00] VITALS: BP 107/54
[2019-12-04] MEDS: CARVEDILOL 6.25 MG TABLET PO SCH (21:00)
[2019-12-04] MEDS: IPRATROPIUM/ALBUTEROL 0.5-3(2.5)MG/3ML NEB HHN SCH (21:33)
[2019-12-05] VITALS (9 sets, daily range): BP systolic 84–131; BP diastolic 46–71
[2019-12-05] MEDS: IPRATROPIUM/ALBUTEROL 0.5-3(2.5)MG/3ML NEB HHN SCH ×6 (00:34→20:38)
[2019-12-05] MEDS: DILTIAZEM HCL 30MG TABLET PO SCH ×5 (05:35→23:31)
[2019-12-05 08:03] LABS: BG BASE EXCESS 5.2 mmol/L (-2.0-2.0); BG CARBOXYHEMOGLOBIN 1.6 % (0.5-1.5); BG DEOXYHEMOGLOBIN 9.1 % (0.0-5.0); BG FRACTION INSPIRED OXYGEN 36; BG HCO3 ACT 31.3 mmol/L (22.0-26.0); BG OXYGEN SATURATION 90.8 % (92.0-98.5); BG OXYHEMOGLOBIN 89.3 % (94.0-97.0); BG PCO2 55.2 mmHg (35.0-45.0); BG PH 7.372 (7.350-7.450); BG SAMPLE SITE RIGHT BRACHIAL; BG TOTAL HEMOGLOBIN 9.1 g/dL (12.0-18.0); BG VENT MODE NASAL CANNULA
[2019-12-05] MEDS: BUDESONIDE 0.5MG/2ML NEB HHN SCH ×2 (09:12→20:39)
[2019-12-05] MEDS: DOCUSATE SODIUM 250MG CAPSULE PO SCH (09:17)
[2019-12-05] MEDS: ZINC SULFATE 220 MG ( 50 ) CAPSULE PO SCH (09:17)
[2019-12-05] MEDS: PANTOPRAZOLE SODIUM 40 MG/VIAL IV SCH ×2 (09:17→20:54)
[2019-12-05] MEDS: ASCORBIC ACID 500 MG TABLET PO SCH (09:18)
[2019-12-05] MEDS: CARVEDILOL 6.25 MG TABLET PO SCH ×2 (09:18→20:54)
[2019-12-05 16:49] LABS: CHLORIDE 111 mEq/L (98-107)
[2019-12-05 16:55] LABS: BASOPHILS % 0.4 % (0.0-2.0); EOSINOPHILS % 0.3 % (0.0-5.0); HEMATOCRIT. 24.8 % (36.0-48.0); HEMOGLOBIN. 7.9 g/dL (12.0-16.0); LYMPHOCYTES % 26.8 % (20.0-50.0); MEAN CORPUSCULAR HEMOGLOBIN 32.5 pg (28.0-32.0); MEAN CORPUSCULAR VOLUME 101.5 fL (81.0-99.0); MEAN PLATELET VOLUME 8.1 fl (7.4-10.4); MONOCYTES % 8.1 % (2.0-8.0); NEUTROPHILS % 64.4 % (40.0-76.0); PLATELET 223 x1000/uL (130-400); RED BLOOD CELL COUNT 2.45 mill/uL (4.2-5.4); RED CELL DISTRIBUTION WIDTH 18.6 % (11.6-14.6)
[2019-12-05 17:16] LABS: INR 1.1; PARTIAL THROMBOPLASTIN TIME 40.5 sec (23.4-31.0); PROTHROMBIN TIME 11.7 sec (9.6-11.0)
[2019-12-06] VITALS (7 sets, daily range): BP systolic 113–140; BP diastolic 53–86
[2019-12-06] MEDS: IPRATROPIUM/ALBUTEROL 0.5-3(2.5)MG/3ML NEB HHN SCH ×6 (00:09→20:04)
[2019-12-06 06:05] LABS: BASOPHILS % 0.4 % (0.0-2.0); EOSINOPHILS % 0.2 % (0.0-5.0); HEMATOCRIT. 26.8 % (36.0-48.0); HEMOGLOBIN. 8.7 g/dL (12.0-16.0); LYMPHOCYTES % 33.1 % (20.0-50.0); MEAN CORPUSCULAR HEMOGLOBIN 32.5 pg (28.0-32.0); MEAN CORPUSCULAR VOLUME 99.4 fL (81.0-99.0); MONOCYTES % 8.5 % (2.0-8.0); NEUTROPHILS % 57.8 % (40.0-76.0); PLATELET 245 x1000/uL (130-400); RED BLOOD CELL COUNT 2.69 mill/uL (4.2-5.4); RED CELL DISTRIBUTION WIDTH 18.2 % (11.6-14.6)
[2019-12-06] MEDS: DILTIAZEM HCL 30MG TABLET PO SCH ×2 (06:09→12:22)
[2019-12-06 06:42] LABS: CHLORIDE 110 mEq/L (98-107)
[2019-12-06] MEDS: BUDESONIDE 0.5MG/2ML NEB HHN SCH ×2 (08:09→20:04)
[2019-12-06] MEDS: DOCUSATE SODIUM 250MG CAPSULE PO SCH (12:20)
[2019-12-06] MEDS: ZINC SULFATE 220 MG ( 50 ) CAPSULE PO SCH (12:20)
[2019-12-06] MEDS: FUROSEMIDE 20MG/2ML VIAL IVP SCH (12:20)
[2019-12-06] MEDS: PANTOPRAZOLE SODIUM 40 MG/VIAL IV SCH ×2 (12:20→22:14)
[2019-12-06] MEDS: CARVEDILOL 6.25 MG TABLET PO SCH ×2 (12:22→21:00)
[2019-12-06] MEDS: ASCORBIC ACID 500 MG TABLET PO SCH (12:22)
[2019-12-07] VITALS (7 sets, daily range): BP systolic 81–166; BP diastolic 33–88
[2019-12-07] MEDS: IPRATROPIUM/ALBUTEROL 0.5-3(2.5)MG/3ML NEB HHN SCH ×6 (00:22→21:23)
[2019-12-07] MEDS: DILTIAZEM HCL 60MG TABLET PO SCH ×4 (06:44→18:03)
[2019-12-07] MEDS: BUDESONIDE 0.5MG/2ML NEB HHN SCH (08:39)
[2019-12-07] MEDS: PANTOPRAZOLE SODIUM 40 MG/VIAL IV SCH ×2 (09:12→20:51)
[2019-12-07] MEDS: FUROSEMIDE 20MG/2ML VIAL IVP SCH (09:12)
[2019-12-07] MEDS: CARVEDILOL 6.25 MG TABLET PO SCH ×2 (09:13→20:21)
[2019-12-07] MEDS: ASCORBIC ACID 500 MG TABLET PO SCH (09:13)
[2019-12-07] MEDS: DOCUSATE SODIUM 250MG CAPSULE PO SCH (09:13)
[2019-12-07] MEDS: ZINC SULFATE 220 MG ( 50 ) CAPSULE PO SCH (09:13)
[2019-12-08] VITALS (13 sets, daily range): BP systolic 85–145; BP diastolic 51–101
[2019-12-08] MEDS: IPRATROPIUM/ALBUTEROL 0.5-3(2.5)MG/3ML NEB HHN SCH ×6 (00:24→20:18)
[2019-12-08] MEDS: DILTIAZEM HCL 60MG TABLET PO SCH ×5 (00:35→18:04)
[2019-12-08] MEDS: ZINC SULFATE 220 MG ( 50 ) CAPSULE PO SCH (08:32)
[2019-12-08] MEDS: PANTOPRAZOLE SODIUM 40 MG/VIAL IV SCH ×2 (08:32→21:13)
[2019-12-08] MEDS: FUROSEMIDE 20MG/2ML VIAL IVP SCH (08:32)
[2019-12-08] MEDS: DOCUSATE SODIUM 250MG CAPSULE PO SCH (08:32)
[2019-12-08] MEDS: CARVEDILOL 6.25 MG TABLET PO SCH ×2 (08:37→21:12)
[2019-12-08] MEDS: ASCORBIC ACID 500 MG TABLET PO SCH (08:42)
[2019-12-09] VITALS (10 sets, daily range): BP systolic 103–153; BP diastolic 45–78
[2019-12-09] MEDS: DILTIAZEM HCL 60MG TABLET PO SCH ×3 (00:35→11:27)
[2019-12-09] MEDS: ACETAMINOPHEN 325MG TABLET PO PRN (00:36)
[2019-12-09] MEDS: IPRATROPIUM/ALBUTEROL 0.5-3(2.5)MG/3ML NEB HHN SCH ×6 (00:40→21:26)
[2019-12-09 06:09] LABS: BASOPHILS % 0.4 % (0.0-2.0); HEMATOCRIT. 26.8 % (36.0-48.0); HEMOGLOBIN. 8.8 g/dL (12.0-16.0); LYMPHOCYTES % 44.5 % (20.0-50.0); MEAN CORPUSCULAR HEMOGLOBIN 32.2 pg (28.0-32.0); MEAN CORPUSCULAR VOLUME 98.3 fL (81.0-99.0); MEAN PLATELET VOLUME 7.8 fl (7.4-10.4); MONOCYTES % 9.7 % (2.0-8.0); NEUTROPHILS % 44.4 % (40.0-76.0); PLATELET 287 x1000/uL (130-400); RED BLOOD CELL COUNT 2.73 mill/uL (4.2-5.4); RED CELL DISTRIBUTION WIDTH 19.8 % (11.6-14.6)
[2019-12-09 07:10] LABS: CHLORIDE 104 mEq/L (98-107)
[2019-12-09] MEDS: FUROSEMIDE 20MG/2ML VIAL IVP SCH (09:10)
[2019-12-09] MEDS: PANTOPRAZOLE SODIUM 40 MG/VIAL IV SCH ×2 (09:10→21:07)
[2019-12-09] MEDS: ZINC SULFATE 220 MG ( 50 ) CAPSULE PO SCH (09:11)
[2019-12-09] MEDS: DOCUSATE SODIUM 250MG CAPSULE PO SCH (09:11)
[2019-12-09] MEDS: ASCORBIC ACID 500 MG TABLET PO SCH (09:11)
[2019-12-09] MEDS: CARVEDILOL 6.25 MG TABLET PO SCH ×2 (09:16→21:00)
[2019-12-10] VITALS (10 sets, daily range): BP systolic 97–141; BP diastolic 28–92
[2019-12-10] MEDS: DILTIAZEM HCL 60MG TABLET PO SCH ×4 (01:09→18:20)
[2019-12-10] MEDS: IPRATROPIUM/ALBUTEROL 0.5-3(2.5)MG/3ML NEB HHN SCH ×6 (01:30→20:15)
[2019-12-10] MEDS: ZINC SULFATE 220 MG ( 50 ) CAPSULE PO SCH (08:57)
[2019-12-10] MEDS: DOCUSATE SODIUM 250MG CAPSULE PO SCH (08:57)
[2019-12-10] MEDS: FUROSEMIDE 20MG/2ML VIAL IVP SCH (08:57)
[2019-12-10] MEDS: PANTOPRAZOLE SODIUM 40 MG/VIAL IV SCH (08:57)
[2019-12-10] MEDS: ASCORBIC ACID 500 MG TABLET PO SCH (08:57)
[2019-12-10] MEDS: CARVEDILOL 6.25 MG TABLET PO SCH (08:58)
[2019-12-10] MEDS ORDERED: METOPROLOL TARTRATE 25MG TABLET PO SCH (21:00)
[2019-12-10] MEDS: CARVEDILOL 12.5MG TABLET PO SCH (21:16)
[2019-12-11] VITALS (7 sets, daily range): BP systolic 102–130; BP diastolic 48–96
[2019-12-11] MEDS: DILTIAZEM HCL 60MG TABLET PO SCH ×3 (00:32→12:00)
[2019-12-11] MEDS: IPRATROPIUM/ALBUTEROL 0.5-3(2.5)MG/3ML NEB HHN SCH ×6 (00:55→20:01)
[2019-12-11] MEDS: DOCUSATE SODIUM 250MG CAPSULE PO SCH (09:31)
[2019-12-11] MEDS: OMEPRAZOLE 20MG CAPSULE EXTENDED RELEASE PO SCH (09:31)
[2019-12-11] MEDS: FUROSEMIDE 20MG/2ML VIAL IVP SCH (09:31)
[2019-12-11] MEDS: ZINC SULFATE 220 MG ( 50 ) CAPSULE PO SCH (09:32)
[2019-12-11] MEDS: CARVEDILOL 12.5MG TABLET PO SCH (09:32)
[2019-12-11] MEDS: ASCORBIC ACID 500 MG TABLET PO SCH (09:33)
[2019-12-12] VITALS (7 sets, daily range): BP systolic 99–136; BP diastolic 49–95
[2019-12-12] MEDS: IPRATROPIUM/ALBUTEROL 0.5-3(2.5)MG/3ML NEB HHN SCH ×6 (00:07→20:00)
[2019-12-12] MEDS: CARVEDILOL 12.5MG TABLET PO SCH ×5 (02:50→21:20)
[2019-12-12] MEDS: DILTIAZEM HCL 60MG TABLET PO SCH ×5 (02:51→18:00)
[2019-12-12] MEDS: OMEPRAZOLE 20MG CAPSULE EXTENDED RELEASE PO SCH (07:15)
[2019-12-12] MEDS: DOCUSATE SODIUM 250MG CAPSULE PO SCH (09:53)
[2019-12-12] MEDS: ZINC SULFATE 220 MG ( 50 ) CAPSULE PO SCH (09:53)
[2019-12-12] MEDS: ASCORBIC ACID 500 MG TABLET PO SCH (09:54)
[2019-12-12] MEDS: FUROSEMIDE 20MG/2ML VIAL IVP SCH (09:54)
[2019-12-13] MEDS: DILTIAZEM HCL 60MG TABLET PO SCH ×2 (00:33→06:14)
[2019-12-13 00:37] VITALS: BP 113/65
[2019-12-13] MEDS: IPRATROPIUM/ALBUTEROL 0.5-3(2.5)MG/3ML NEB HHN SCH ×3 (00:45→07:38)
[2019-12-13 04:00] VITALS: BP 126/63
[2019-12-13] MEDS: OMEPRAZOLE 20MG CAPSULE EXTENDED RELEASE PO SCH (06:13)
[2019-12-13 08:00] VITALS: BP 96/56
[2019-12-13] MEDS: FUROSEMIDE 20MG/2ML VIAL IVP SCH (08:49)
[2019-12-13] MEDS: CARVEDILOL 12.5MG TABLET PO SCH (08:49)
[2019-12-13] MEDS: ASCORBIC ACID 500 MG TABLET PO SCH (09:01)
[2019-12-13] MEDS: ZINC SULFATE 220 MG ( 50 ) CAPSULE PO SCH (09:01)
[2019-12-13] MEDS: DOCUSATE SODIUM 250MG CAPSULE PO SCH (09:02)
[2019-12-13 11:57] VITALS: BP 96/56
[2019-12-13 12:00] VITALS: BP 115/92
== END 2019-12-13 12:45 | DRG 720 ==
LOC: ER 00:16 → MICUNO 06:18 → EDBEDREQ 06:19 → EDBEDREQSVC 06:19 → ENRESERV 08:01 → CANRESERV 08:01 → ENRESERV 08:23 → 5EST 11-26 22:03 → 6WST 12-10 22:38
PROVIDERS: ADMIT Internal Medicine; ATTEND Internal Medicine
PROC: 0XJ Anatomical Regions, Upper Extremities, Inspection (ICD-10-PCS; 2019-11-24)
PROC: 0DB68ZX Excision of Stomach, Via Natural or Artificial Opening Endoscopic, Diagnostic (ICD-10-PCS; principal; 2019-11-25)
PROC: 02H633Z Insertion of Infusion Device into Right Atrium, Percutaneous Approach (ICD-10-PCS; 2019-11-25)
PROC: B548ZZA Ultrasonography of Superior Vena Cava, Guidance (ICD-10-PCS; 2019-11-25)
PROC: 02HV33Z Insertion of Infusion Device into Superior Vena Cava, Percutaneous Approach (ICD-10-PCS; 2019-12-04)
PROC: B548ZZA Ultrasonography of Superior Vena Cava, Guidance (ICD-10-PCS; 2019-12-04)
PROC: B5181ZA Fluoroscopy of Superior Vena Cava using Low Osmolar Contrast, Guidance (ICD-10-PCS; 2019-12-04)
PROC: 0W993ZZ Drainage of Right Pleural Cavity, Percutaneous Approach (ICD-10-PCS; 2019-12-06)
DX: A41.59 Other Gram-negative sepsis (principal); J96.00 Acute respiratory failure, unspecified whether with hypoxia or hypercapnia; I50.43 Acute on chronic combined systolic (congestive) and diastolic (congestive) heart failure; G93.40 Encephalopathy, unspecified; E44.0 Moderate protein-calorie malnutrition; K26.4 Chronic or unspecified duodenal ulcer with hemorrhage; L89.329 Pressure ulcer of left buttock, unspecified stage; L89.159 Pressure ulcer of sacral region, unspecified stage; J91.8 Pleural effusion in other conditions classified elsewhere; L89.213 Pressure ulcer of right hip, stage 3; E87.2 Acidosis; E87.5 Hyperkalemia; E83.42 Hypomagnesemia; I08.1 Rheumatic disorders of both mitral and tricuspid valves; I11.0 Hypertensive heart disease with heart failure; E87.8 Other disorders of electrolyte and fluid balance, not elsewhere classified; I27.20 Pulmonary hypertension, unspecified; I47.1 Supraventricular tachycardia; I48.19 Other persistent atrial fibrillation; D64.9 Anemia, unspecified; N39.0 Urinary tract infection, site not specified; E87.6 Hypokalemia; F03.90 Unspecified dementia, unspecified severity, without behavioral disturbance, psychotic disturbance, mood disturbance, and anxiety; B96.1 Klebsiella pneumoniae [K. pneumoniae] as the cause of diseases classified elsewhere; E78.5 Hyperlipidemia, unspecified; I27.29 Other secondary pulmonary hypertension; I42.9 Cardiomyopathy, unspecified; K29.60 Other gastritis without bleeding; K44.9 Diaphragmatic hernia without obstruction or gangrene; R29.6 Repeated falls; Z78.1 Physical restraint status; Z79.01 Long term (current) use of anticoagulants; Z79.899 Other long term (current) drug therapy; Z74.01 Bed confinement status; Z86.718 Personal history of other venous thrombosis and embolism; Z87.440 Personal history of urinary (tract) infections; Z95.828 Presence of other vascular implants and grafts; Z99.3 Dependence on wheelchair; Z68.31 Body mass index [BMI] 31.0-31.9, adult; Z88.0 Allergy status to penicillin; Z88.6 Allergy status to analgesic agent; Z91.041 Radiographic dye allergy status
CPT/HCPCS: 32555; 36415; 36600; 71045; 76937; 77001; 80048; 80053; 80202; 81003; 82040; 82270; 82375; 82728; 82805; 82962; 83540; 83550; 83605; 83615; 83735; 84134; 84145; 84443; 84484; 85025; 87077; 87186; 88108; 88305; 88312; 88313; 93005; 93306; 93970; 94640; 94660; 96365; 97162; 97164; 97530; 99285; A6261; C1725; C1893; C9113; J0153; J0692; J1160; J1650; J1940; J1956; J2060; J2250; J2270; J3010; J3370; J3475; J3480; J3490; J7040; J7060; J7620; J7626; A4315